=== PATIENT | female | born 1955 | race Caucasian/White ===

== ENCOUNTER → 2017-09-09 | Outpatient (CLI) | payer BC | LOC: MC.RAD 10:20 | DX: Z12.31 Encounter for screening mammogram for malignant neoplasm of breast (principal); N64.89 Other specified disorders of breast ==

== ENCOUNTER 2017-09-13 06:58 | Day surgery (SDC) | payer BC ==
[~2017-09-13] VITALS: Ht 165.1 cm; Wt 99.9 kg
[2017-09-13 07:30] VITALS: BP 139/93; PULSE 75; TEMP 97.9
[2017-09-13] MEDS ORDERED: PAXIL 20MG20 MG PO (07:38)
[2017-09-13] MEDS ORDERED: NORVASC2.5 MG PO (07:39)
[2017-09-13] MEDS ORDERED: HYZAAR 50-12.1 UDTAB PO (07:40)
[2017-09-13 08:40] VITALS: BP 134/83; PULSE 70; TEMP 98.4
[2017-09-13 08:55] VITALS: BP 129/71; PULSE 72
[2017-09-13 09:10] VITALS: BP 136/84; PULSE 69
== END 2017-09-13 09:20 | disposition home or self-care (01) ==
LOC: SDCO 06:58
DX: Z12.11 Encounter for screening for malignant neoplasm of colon (principal); D12.8 Benign neoplasm of rectum; K57.30 Diverticulosis of large intestine without perforation or abscess without bleeding; Z88.5 Allergy status to narcotic agent
CPT/HCPCS: OP; J2250; J3010; J7030

== ENCOUNTER → 2017-09-17 | Outpatient (CLI) | payer BC ==
[~2017-09-17] MED LIST: HYZAAR 50-12.1 UDTAB PO; NORVASC2.5 MG PO; PAXIL 20MG20 MG PO
== END ==
LOC: MC.RAD 12:46
DX: N64.89 Other specified disorders of breast (principal)

== ENCOUNTER 2019-07-13 16:45 | Outpatient (RCR) | payer MEDICARE | END 2019-09-15 | disposition home or self-care (01) | LOC: WSC | DX: M17.31 Unilateral post-traumatic osteoarthritis, right knee (principal); M54.41 Lumbago with sciatica, right side ==